=== PATIENT | male | born 1990 | race Caucasian/White ===

== ENCOUNTER 2020-01-02 08:50 | Outpatient (CLI) | payer BC, SELFPAY ==
[2020-01-02 09:28] LABS: D Dimer 0.33 ug/mIFEU (0-0.59)
== END 2020-01-02 08:51 | disposition home or self-care (01) ==
LOC: LAB 08:56
PROVIDERS: PCP Physician Assistant; Visit Provider Family Medicine
DX: R05 Cough (principal); R07.9 Chest pain, unspecified; R09.89 Other specified symptoms and signs involving the circulatory and respiratory systems
CPT/HCPCS: 85378

== ENCOUNTER 2021-08-19 21:27 | Emergency (ER) | payer OTHER, SELFPAY ==
--- NOTE | 2021-08-19 21:45 | CTR_ITS ---
PROCEDURE INFORMATION: Exam: CT Abdomen And Pelvis Without Contrast Exam date and time: 08/19/2021 10:00 PM Age: 30 years old Clinical indication: Abdominal pain; Generalized; Additional info: Abd pain with unrelenting vomiting today TECHNIQUE: Imaging protocol: Computed tomography of the abdomen and pelvis without contrast. Radiation optimization: All CT scans at this facility use at least one of these dose optimization techniques: automated exposure control; mA and/or kV adjustment per patient size (includes targeted exams where dose is matched to clinical indication); or iterative reconstruction. COMPARISON: CR XR chest 2V* [id number] 01/02/2020 8:28 AM RADIATION DOSE METRICS: Total DLP (mGy-cm): 1532.1 FINDINGS: Liver: Normal. No mass. Gallbladder and bile ducts: Normal. No calcified stones. No ductal dilation. Pancreas: Normal. No ductal dilation. Spleen: Normal. No splenomegaly. Adrenal glands: Normal. No mass. Kidneys and ureters: Normal. No renal stone or hydronephrosis. Stomach and bowel: Unremarkable. No obstruction. No mucosal thickening. Appendix: The appendix is normal. Intraperitoneal space: Unremarkable. No free air. No significant fluid collection. Vasculature: Unremarkable. No abdominal aortic aneurysm. Lymph nodes: Unremarkable. No enlarged lymph nodes. Urinary bladder: Unremarkable as visualized. Reproductive: Unremarkable as visualized. Bones/joints: Unremarkable. No acute fracture. Soft tissues: Mild left gynecomastia is appreciated. CT/CT abdomen pelvis con [id number] IMPRESSION: No acute abnormality is seen in the abdomen or pelvis. Mild left gynecomastia is noted.
--- NOTE | 2021-08-19 21:47 | W.ED.ABDPA2 ---
HPI - Abdominal Pain General: Chief Complaint: Nausea/Vomiting/Diarrhea Stated Complaint: N\V ABD Pain Time Seen by Provider: 08/19/21 21:33 Source: patient Mode of arrival: ambulatory Limitations: no limitations History of Present Illness: 30-year-old male who states that over the last 2 to 3 days has been having nausea vomiting along with abdominal pain. States pain is diffuse in nature and cramping he rates it a 6 out of 10 currently. He states that it waxed and waned over the last few days but got much worse today. Denies any worsening improving factors denies any fever denies any chest pain. Associated Symptoms: Reports nausea and vomiting; Denies chills, dysuria and fever(s) Review of Systems Const: Denies: fever(s), chills, body aches or change in appetite Eyes: Denies: blurry vision or eye discomfort ENMT: Denies: throat pain or dental pain Card: Denies: chest pain Resp: Denies: dyspnea GI: Reports: abdominal pain, nausea and vomiting : Denies: dysuria Musc: Denies: neck pain or back pain Skin/Breast: Denies: rash Neuro: Denies: headache(s) Psych: Denies: depression Vic/Lymph: Denies: easy bruising All/Imm: Denies: urticaria PFSH ED PFSH: Medical History (Updated 08/19/21 @ 23:17 by Kandis Ferguson MD) No pertinent past medical history Social History (Updated 08/19/21 @ 21:48 by Kandis Ferguson MD) Substance/Drug Use: never Physical Exam Const: COMMON NORMALS: no acute distress, patient oriented x3 and healthy appearing HENMT: COMMON NORMALS: normocephalic and atraumatic HEAD & SCALP: normocephalic and atraumatic Eye: COMMON NORMALS: Equal, round and reactive pupils present and EOMs intact bilaterally PUPIL: Yes Equal, round and reactive pupils present Neck/C-Spine: COMMON NORMALS: full ROM and supple Chest: COMMONS NORMALS: normal inspection of the chest and normal palpation of entire chest wall Resp: COMMON NORMALS: normal respiratory effort, No retractions, No use of accessory muscles and clear to auscultation bilaterally AUSCULTATION: clear to auscultation bilaterally Cardio: COMMON NORMALS: regular rate, regular rhythm and No murmurs present (Cardio) RATE: regular rate RHYTHM: regular rhythm GI: COMMON NORMALS: Normal to inspection, nondistended, normoactive bowel sounds present, Soft to palpation, non-tender and no masses PALPATION: Yes Soft to palpation Extremity: COMMON NORMALS: normal to inspection and full ROM Neuro: COMMON NORMALS: patient oriented x3, moves all extremities and no focal motor deficits Psych: COMMON NORMALS: mental status grossly normal, Normal thought process present and cooperative THOUGHT PROCESS: Normal thought process present Skin: COMMON NORMALS: no rashes or lesions noted and no wounds GENERAL SKIN EXAM: no rashes or lesions noted Course Vital Signs: Vital signs: Vital Signs Temperature 97.9 F 08/19/21 22:13 Pulse Rate 98 08/19/21 22:45 Respiratory Rate 24 H 08/19/21 22:45 Blood Pressure 138/100 08/19/21 22:45 Pulse Oximetry 98 08/19/21 22:45 MDM - Abdominal Pain Medical Decision Making Patient presents here with vomiting lower abdominal pain his CT of his abdomen along with blood work are normal he feels improved here will prescribe him nausea medicine for home along with Protonix he is to follow-up with PCP and return if worsening he understands agrees to plan. Lab Data : 08/19/21 22:20 08/19/21 22:20 Labs/Radiology: Radiology Impressions Abdomen/Pelvis CT 08/19/21 21:45 IMPRESSION: No acute abnormality is seen in the abdomen or pelvis. Mild left gynecomastia is noted. Laboratory Results WBC 13.6 10^3/uL (4.0-10.0) H 08/19/21 22:20 RBC 5.78 10^6/uL (4.1-5.3) H 08/19/21 22:20 Hgb 17.1 g/dL (11.7-16.6) H 08/19/21 22:20 Hct 49.4 % (42.0-52.0) 08/19/21 22:20 MCV 85.5 fl (80-94) 08/19/21 22:20 MCH 29.6 pg (28.0-34.0) 08/19/21 22:20 MCHC 34.6 g/dL (30.0-36.0) 08/19/21 22:20 RDW 13.1 % (12.1-15.1) 08/19/21 22:20 Plt Count 315 10^3/cmm (130-400) 08/19/21 22:20 MPV 9.1 fL (7.4-10.4) 08/19/21 22:20 Neut % (Auto) 71.0 % 08/19/21 22:20 Lymph % (Auto) 20.3 % 08/19/21 22:20 [place] % (Auto) 7.2 % 08/19/21 22:20 Eos % (Auto) 0.5 % 08/19/21 22:20 Baso % (Auto) 0.5 % 08/19/21 22:20 Neut # (Auto) 9.67 10^3/uL (1.8-7.7) H 08/19/21 22:20 Lymph # (Auto) 2.8 10^3/uL (0.8-4.8) 08/19/21 22:20 [place] # (Auto) 1.0 10^3/uL (0.2-0.9) H 08/19/21 22:20 Eos # (Auto) 0.1 10^3/uL (0.0-0.8) 08/19/21 22:20 Baso # (Auto) 0.1 10^3/uL (0.0-0.1) 08/19/21 22:20 Nucleated RBC % (auto) 0 % 08/19/21 22:20 Nucleated RBCs # 0.0 /100WBC 08/19/21 22:20 Sodium 138 mmol/L (136-145) 08/19/21 22:20 Potassium 3.6 mmol/L (3.5-5.1) 08/19/21 22:20 Chloride 101 mmol/L (98-107) 08/19/21 22:20 Carbon Dioxide 21 mmol/L (22-29) L 08/19/21 22:20 Anion Gap 19.6 (5-19) H 08/19/21 22:20 BUN 13 mg/dL (6-20) 08/19/21 22:20 Creatinine 0.9 mg/dL (0.7-1.2) 08/19/21 22:20 GFR Calculation 100.5 mL/min (90-130) 08/19/21 22:20 Glucose 119 mg/dL (65-115) H 08/19/21 22:20 Calculated Osmolality 287 mOsm/kg (285-295) 08/19/21 22:20 Calcium 9.3 mg/dL (8.5-10.5) 08/19/21 22:20 Total Bilirubin 0.5 mg/dL (0.15-1.2) 08/19/21 22:20 AST 35 U/L (0-40) 08/19/21 22:20 ALT 34 U/L (0-41) 08/19/21 22:20 Alkaline Phosphatase 71 IU/L (40-130) 08/19/21 22:20 Total Protein 7.8 g/dL (6.6-8.7) 08/19/21 22:20 Albumin 4.6 g/dL (3.5-5.2) 08/19/21 22:20 Globulin 3.2 g/dL (1.3-4.6) 08/19/21 22:20 Lipase 23 U/L (13-60) 08/19/21 22:20 Discharge Plan Discharge Patient Disposition: Home Clinical Impression: Abdominal pain, Vomiting Prescriptions: New hydrocodone-acetaminophen 5-325 mg tablet 1 tab PO Q6H PRN (Reason: pain) Qty: 14 0RF ondansetron 4 mg tablet,disintegrating 4 mg PO Q6H PRN (Reason: nausea and vomiting) Qty: 14 0RF Protonix 40 mg tablet,delayed release (DR/EC) 40 mg PO DAILY Qty: 60 0RF Discharge Orders: Discharge ED (Routine); Ordered 08/19/21 Ordered By: Kandis Ferguson Referrals: Diann Scruggs PA [Primary Care Provider] - 1-3 days Discharge Diet: Advance as tolerated Discharge Activity: Resume usual activity Patient Instructions: Abdominal Pain (ED), Opioid Safety Coding Level of Care Code ED Supervisor Network Control Operators for Chg Fwd Exam Comprehensive
[2021-08-19 22:13] VITALS: PULSE 71; RESP 22; TEMP 36.6; O2SAT 100; BMI 41.2
[2021-08-19 22:26] LABS: Basophils # 0.1 10^3/uL (0.0-0.1); Basophils % 0.5 %; Eosinophils # 0.1 10^3/uL (0.0-0.8); Eosinophils % 0.5 %; Hematocrit 49.4 % (42.0-52.0); Hemoglobin 17.1 g/dL (11.7-16.6); Lymphocytes # 2.8 10^3/uL (0.8-4.8); Lymphocytes % 20.3 %; Mean Corpuscular HGB Conc 34.6 g/dL (30.0-36.0); Mean Corpuscular Hemoglobin 29.6 pg (28.0-34.0); Mean Corpuscular Volume 85.5 fl (80-94); Mean Platelet Volume 9.1 fL (7.4-10.4); Monocytes % 7.2 %; Neutrophils # 9.67 10^3/uL (1.8-7.7); Nucleated Red Blood Cells % 0 %; Platelet Count 315 10^3/cmm (130-400); Red Blood Count 5.78 10^6/uL (4.1-5.3); Red Cell Distribution Width 13.1 % (12.1-15.1); White Blood Count 13.6 10^3/uL (4.0-10.0)
[2021-08-19 22:38] VITALS: RESP 24
[2021-08-19] MEDS: morphine 4 mg/mL SDV 1 mL IVP (22:38)
[2021-08-19] MEDS: sodium chloride 0.9% 1,000 ML 999 ML IV (22:39)
[2021-08-19] MEDS: ondansetron 2 mg/ML SDV 2 mL 4 MG IVP (22:39)
[2021-08-19 22:41] LABS: Alanine Aminotransferase 34 U/L (0-41); Albumin Level 4.6 g/dL (3.5-5.2); Alkaline Phosphatase 71 IU/L (40-130); Anion Gap 19.6 (5-19); Aspartate Amino Transferase 35 U/L (0-40); Blood Urea Nitrogen 13 mg/dL (6-20); Calcium 9.3 mg/dL (8.5-10.5); Carbon Dioxide 21 mmol/L (22-29); Chloride 101 mmol/L (98-107); Globulin 3.2 g/dL (1.3-4.6); Glomerular Filtration Rate 100.5 mL/min (90-130); Glucose 119 mg/dL (65-115); Lipase 23 U/L (13-60); Osmolality Calculated 287 mOsm/kg (285-295); Potassium 3.6 mmol/L (3.5-5.1); Sodium 138 mmol/L (136-145); Total Bilirubin 0.5 mg/dL (0.15-1.2); Total Protein 7.8 g/dL (6.6-8.7)
[2021-08-19 22:45] VITALS: BP 138/100; PULSE 98; RESP 24; O2SAT 98
[2021-08-19] MEDS: ondansetron 4 MG Tablet PO (23:35)
[2021-08-20 00:04] VITALS: BP 159/92; PULSE 88; RESP 18; O2SAT 98
== END 2021-08-20 00:05 | disposition home or self-care (01) ==
PROVIDERS: Emergency Provider Emergency Medicine; PCP Physician Assistant
DX: R11.2 Nausea with vomiting, unspecified (principal); R10.9 Unspecified abdominal pain
CPT/HCPCS: 74176; 80053; 83690; 85025; 96361; 96374; 96375; 99284; J2270; J2405; J7030; Q0162

== ENCOUNTER 2021-11-01 12:03 | Emergency (ER) | payer OTHER, SELFPAY ==
[2021-11-01 12:06] VITALS: BP 163/95; PULSE 75; RESP 21; TEMP 36.6; O2SAT 98; BMI 40.6
--- NOTE | 2021-11-01 12:10 | ED_ITS ---
HPI - General Adult General: Chief complaint: Abdominal Pain Stated complaint: Stomach Pain Time Seen by Provider: 11/01/21 12:08 History of Present Illness: Patient is a 31-year-old male with a history of prior abdominal pain, marijuana use presenting to the emergency room with compl aints of diffuse abdominal pain, nausea vomiting diarrhea. Patient tells me that he began having symptoms around midnight yesterday after eating dinner. Patient tells me that his ate the same food that he ate and did not have any symptoms. Since then, patient has had to lower abdominal pain and then diffuse abdominal pain. Patient reports multiple episodes of loose stool without any blood or melena. Patient also reports multiple episodes of emesis earlier today. Patient reports significant nausea. Denies any fever/chills, chest pain, shortness breath, sore throat, diarrhea/melena/hematochezia. Patient tells me he has a history of alpha gal present does not think that he has been exposed to eating pork or beef product in the last two days. Onset:yesterday night Duration:ongoing Location:home Severity:moderate Associated symptoms: Reports vomiting; Deny chest pain, dyspnea, nausea, rash or palpitations Review of Systems Const: Denies: fever(s) or chills Eyes: Denies: change in vision ENMT: Denies: mouth pain Card: Denies: chest pain or palpitations Resp: Denies: dyspnea or non-productive cough GI: Reports: abdominal pain, vomiting and diarrhea; Denies: nausea : Denies: dysuria Musc: Denies: extremity pain Skin/Breast: Denies: rash or new lesions Neuro: Denies: weakness in extremities Psych: Reports: other (Normal mood) Vic/Lymph: Denies: easy bruising [facility] ED PFSH: Medical History (Updated 11/01/21 @ 12:31 by Yair Chiang MD) Abdominal pain Social History (Updated 11/01/21 @ 12:29 by Yair Chiang MD) Smoking and tobacco status: never smoked Alcohol intake: never Substance/Drug Use: current Substance/Drug use type: Marijuana Physical Exam Const: COMMON NORMALS: alert HENMT: COMMON NORMALS: atraumatic HEAD & SCALP: atraumatic MOUTH: moist mucous membranes abnormal Eye: COMMON NORMALS: EOMs intact bilaterally and conjunctivae normal CONJUNCTIVA: Yes conjunctivae normal Neck/C-Spine: COMMON NORMALS: full ROM and supple Resp: COMMON NORMALS: normal respiratory effort and clear to auscultation bilaterally AUSCULTATION: clear to auscultation bilaterally Cardio: COMMON NORMALS: regular rate RATE: regular rate GI: COMMON NORMALS: Soft to palpation and non-tender PALPATION: Yes Soft to palpation OTHER: No focal TTP. NO guarding rebound, guarding, rigidity. No CVA tenderness to percussion. Neg Gaines/Neg McBurney's point tenderness, no suprabupic tenderness to palpation. Extremity: COMMON NORMALS: full ROM Neuro: SENSORIUM/ORIENTATION: Yes alert MOTOR EXAM: No Abnormal motor strength present and Other motor observations present (no focal motor deficits) Psych: COMMON NORMALS: speech normal SPEECH: Yes normal speech MOOD & AFFECT: Yes euthymic mood Course Vital Signs: Vital signs: Vital Signs Temperature 97.8 F 11/01/21 12:06 Pulse Rate 82 11/01/21 13:36 Respiratory Rate 18 11/01/21 13:36 Blood Pressure 152/98 11/01/21 13:36 Pulse Oximetry 100 11/01/21 13:36 Oxygen Delivery Me thod 11/01/21 13:36 [facility] - General Adult Medical Decision Making Patient is a 31-year-old male with a history of prior abdominal pain, marijuana use presenting to the emergency room with complaints of diffuse abdominal pain with nausea/vomiting/diarrhea since 12pm. On exam, patient is no focal tenderness palpation. Patient's appear to be dry. Patient received Zofran and IVF. Lab work-up showed no white count. Lab within normal limit. She received GI cocktail reports feeling symptomatically improved. Patient has been able to tolerate p.o. at this time. No suspicion for other acute intra-abdominal pathology including SBO, biliary pathology, appendicitis, diverticulitis, or other emergent condition requiring surgery. Rx tylenol PRN abd pain, maalox/pepcid PRN dyspepsia, and zofran PRN nausea/vomiting Disposition: Discharge. Patient counseled regarding diagnostic impression, treatment plan. Patient given ED strict return precautions to return for continuation, worsening, or development of new symptoms. Instructed to f/u w/ PCP regarding symptoms today. Patient verbalized understanding. Lab Data : 11/01/21 13:00 11/01/21 13:00 Radiology Impressions Abdomen/Pelvis CT 11/01/21 15:06 IMPRESSION: No acute findings. Laboratory Results WBC 11.0 10^3/uL (4.0-10.0) H 11/01/21 13:00 RBC 5.57 10^6/uL (4.1-5.3) H 11/01/21 13:00 Hgb 16.5 g/dL (11.7-16.6) 11/01/21 13:00 Hct 46.8 % (42.0-52.0) 11/01/21 13:00 MCV 84.0 fl (80-94) 11/01/21 13:00 MCH 29.6 pg (28.0-34.0) 11/01/21 13:00 MCHC 35.3 g/dL (30.0-36.0) 11/01/21 13:00 RDW 12.7 % (12.1-15.1) 11/01/21 13:00 Plt Count 344 10^3/cmm (130-400) 11/01/21 13:00 MPV 9.9 fL (7.4-10.4) 11/01/21 13:00 Neut % (Auto) 79.4 % 11/01/21 13:00 Lymph % (Auto) 13.5 % 11/01/21 13:00 [place] % (Auto) 6.3 % 11/01/21 13:00 Eos % (Auto) 0.0 % 11/01/21 13:00 Baso % (Auto) 0.3 % 11/01/21 13:00 Neut # (Auto) 8.78 10^3/uL (1.8-7.7) H 11/01/21 13:00 Lymph # (Auto) 1.5 10^3/uL (0.8-4.8) 11/01/21 13:00 [place] # (Auto) 0.7 10^3/uL (0.2-0.9) 11/01/21 13:00 Eos # (Auto) 0.0 10^3/uL (0.0-0.8) 11/01/21 13:00 Baso # (Auto) 0.0 10^3/uL (0.0-0.1) 11/01/21 13:00 Nucleated RBC % (auto) 0 % 11/01/21 13:00 Nucleated RBCs # 0.0 /100WBC 11/01/21 13:00 Sodium 137 mmol/L (136-145) 11/01/21 13:00 Potassium 3.0 mmol/L (3.5-5.1) L 11/01/21 13:00 Chloride 100 mmol/L (98-107) 11/01/21 13:00 Carbon Dioxide 19 mmol/L (22-29) L 11/01/21 13:00 Anion Gap 21.0 (5-19) H 11/01/21 13:00 BUN 4 mg/dL (6-20) L 11/01/21 13:00 Creatinine 0.7 mg/dL (0.7-1.2) 11/01/21 13:00 GFR Calculation 133.3 mL/min (90-130) H 11/01/21 13:00 Glucose 131 mg/dL (65-115) H 11/01/21 13:00 Calculated Osmolality 283 mOsm/kg (285-295) L 11/01/21 13:00 Calcium 10.1 mg/dL (8.5-10.5) 11/01/21 13:00 Total Bilirubin 0.7 mg/dL (0.15-1.2) 11/01/21 13:00 AST 29 U/L (0-40) 11/01/21 13:00 ALT 41 U/L (0-41) 11/01/21 13:00 Alkaline Phosphatase 80 U/L (40-130) 11/01/21 13:00 Total Protein 8.0 g/dL (6.6-8.7) 11/01/21 13:00 Albumin 5.2 g/dL (3.5-5.2) 11/01/21 13:00 Globulin 2.8 g/dL (1.3-4.6) 11/01/21 13:00 Lipase 19 U/L (13-60) 11/01/21 13:00 Imaging Data Other Imaging: Radiologist's impression: [address] [place] [address] CT Scan Report Signed Patient: Delmar Amaya Unit #: [id number] : 1990 Age/Sex: 31 / M ADM Date: 11/01/21 Loc: ER Room/Bed: Attending Dr: Ordering Provider/Ordering MD: Yair Chiang MD Date of Service: 11/01/21 Procedure(s): CT abdomen pelvis w con* [id number] Accession Number(s): [id number] Report Number: [id number] PROCEDURE INFORMATION: Exam: CT Abdomen And Pelvis With Contrast Exam date and time: 11/01/2021 3:16 PM Age: 31 years old Clinical indication: Bloating and nausea and vomiting; Additional info: Abd pain TECHNIQUE: Imaging protocol: Computed tomography of the abdomen and pelvis with contrast. Radiation optimization: All CT scans at this facility use at least one of these dose optimization techniques: automated exposure control; mA and/or kV adjustment per patient size (includes targeted exams where dose is matched to clinical indication); or iterative reconstruction. Contrast material: OMNIPAQUE 350; Contrast volume: 80 ml; Contrast route: INTRAVENOUS (IV);? COMPARISON: CT abdomen pelvis wo con [id number] 08/19/2021 10:00 PM RADIATION DOSE METRICS: Total DLP (mGy-cm): 1250.18 FINDINGS: Liver: Normal. No mass. Gallbladder and bile ducts: Normal. No calcified stones. No ductal dilation. Pancreas: Normal. No ductal dilation. Spleen: Normal. No splenomegaly. Adrenal glands: Normal. No mass. Kidneys and ureters: Normal. No hydronephrosis. Stomach and bowel: Unremarkable. No obstruction. No mucosal thickening. Appendix: No evidence of appendicitis. Intraperitoneal space: Unremarkable. No free air. No significant fluid collection. Vasculature: Unremarkable. No abdominal aortic aneurysm. Lymph nodes: Unremarkable. No enlarged lymph nodes. Urinary bladder: Unremarkable as visualized. Reproductive: Unremarkable as visualized. Bones/joints: No acute fracture. Soft tissues: Unremarkable. CT/CT abdomen pelvis w con* [id number] IMPRESSION: No acute findings. ? Dictated By: Elmer Simms DO Signed By: Elmer Simms DO Signed Date/Time: 11/01/21 1608 DD/ 1516 Discharge Plan Discharge Patient Disposition: Home Clinical Impression: Abdominal pain, Nausea & vomiting, Diarrhea Condition: Stable Prescriptions: New acetaminophen 500 mg tablet 500 mg PO Q6H PRN (Reason: pain) 5 Days Qty: 20 0RF Maalox Advanced 1,000-60 mg tablet,chewable 1 tab PO TID PRN (Reason: abdominal pain) 7 Days Qty: 21 0RF Pepcid 20 mg tablet 20 mg PO BID PRN (Reason: abdominal pain) 10 Days Qty: 20 0RF ondansetron 4 mg tablet,disintegrating 4 mg PO TID PRN (Reason: nausea and vomiting) 4 Days Qty: 12 0RF No Action hydrocodone-acetaminophen 5-325 mg tablet 1 tab PO Q6H PRN (Reason: pain) Qty: 14 0RF ondansetron 4 mg tablet,disintegrating 4 mg PO Q6H PRN (Reason: nausea and vomiting) Qty: 14 0RF Protonix 40 mg tablet,delayed release (DR/EC) 40 mg PO DAILY Qty: 60 0RF Discharge Orders: Discharge ED (Routine); Ordered 11/01/21 Ordered By: Yair Chiang Referrals: Diann Scruggs PA [Primary Care Provider] - Discharge Diet: Advance as tolerated Discharge Activity: Increase activity as tolerated Patient Instructions: Acute Nausea and Vomiting (ED), Acute Diarrhea (ED), Abdominal Pain (ED) Activity Restrictions/Additional Instructions: Please come back if you have any worsening abdominal pain, fever or chills, nausea or vomiting, diarrhea, blood in the stool, inability hold down liquid or solids, or any new concerning complaints. Coding Level of Care Code ED Director Data Processing for [employer] Fwd Exam Comprehensive
[2021-11-01] MEDS: acetaminophen 500 mg Tablet PO (12:51)
[2021-11-01] MEDS: sodium chloride 0.9% 1,000 ML 999 ML IV ×2 (12:52→14:25)
[2021-11-01] MEDS: ondansetron 2 mg/ML SDV 2 mL 4 MG IVP ×2 (12:55→15:03)
[2021-11-01] MEDS: famotidine 20 mg/2 mL INJ IVP (12:58)
[2021-11-01 13:14] LABS: Basophils % 0.3 %; Hematocrit 46.8 % (42.0-52.0); Hemoglobin 16.5 g/dL (11.7-16.6); Lymphocytes # 1.5 10^3/uL (0.8-4.8); Lymphocytes % 13.5 %; Mean Corpuscular HGB Conc 35.3 g/dL (30.0-36.0); Mean Corpuscular Hemoglobin 29.6 pg (28.0-34.0); Mean Platelet Volume 9.9 fL (7.4-10.4); Monocytes # 0.7 10^3/uL (0.2-0.9); Monocytes % 6.3 %; Neutrophils # 8.78 10^3/uL (1.8-7.7); Neutrophils % 79.4 %; Nucleated Red Blood Cells % 0 %; Platelet Count 344 10^3/cmm (130-400); Red Blood Count 5.57 10^6/uL (4.1-5.3); Red Cell Distribution Width 12.7 % (12.1-15.1)
[2021-11-01 13:29] VITALS: RESP 20
[2021-11-01] MEDS: morphine 4 mg/mL SDV 1 mL 2 MG IVP (13:29)
[2021-11-01] MEDS: lidocaine 2% viscous 15 ML, aluminum-mag hydrox-simethicon 30 ML, sucralfate oral liq 1 GM PO (13:31)
[2021-11-01 13:34] LABS: Alanine Aminotransferase 41 U/L (0-41); Albumin Level 5.2 g/dL (3.5-5.2); Alkaline Phosphatase 80 U/L (40-130); Aspartate Amino Transferase 29 U/L (0-40); Blood Urea Nitrogen 4 mg/dL (6-20); Calcium 10.1 mg/dL (8.5-10.5); Carbon Dioxide 19 mmol/L (22-29); Chloride 100 mmol/L (98-107); Globulin 2.8 g/dL (1.3-4.6); Glomerular Filtration Rate 133.3 mL/min (90-130); Glucose 131 mg/dL (65-115); Lipase 19 U/L (13-60); Osmolality Calculated 283 mOsm/kg (285-295); Sodium 137 mmol/L (136-145); Total Bilirubin 0.7 mg/dL (0.15-1.2)
[2021-11-01 13:36] VITALS: BP 152/98; PULSE 82; RESP 18; O2SAT 100
--- NOTE | 2021-11-01 15:06 | CTR_ITS ---
PROCEDURE INFORMATION: Exam: CT Abdomen And Pelvis With Contrast Exam date and time: 11/01/2021 3:16 PM Age: 31 years old Clinical indication: Bloating and nausea and vomiting; Additional info: Abd pain TECHNIQUE: Imaging protocol: Computed tomography of the abdomen and pelvis with contrast. Radiation optimization: All CT scans at this facility use at least one of these dose optimization techniques: automated exposure control; mA and/or kV adjustment per patient size (includes targeted exams where dose is matched to clinical indication); or iterative reconstruction. Contrast material: OMNIPAQUE 350; Contrast volume: 80 ml; Contrast route: INTRAVENOUS (IV); COMPARISON: CT abdomen pelvis wo con [id number] 08/19/2021 10:00 PM RADIATION DOSE METRICS: Total DLP (mGy-cm): 1250.18 FINDINGS: Liver: Normal. No mass. Gallbladder and bile ducts: Normal. No calcified stones. No ductal dilation. Pancreas: Normal. No ductal dilation. Spleen: Normal. No splenomegaly. Adrenal glands: Normal. No mass. Kidneys and ureters: Normal. No hydronephrosis. Stomach and bowel: Unremarkable. No obstruction. No mucosal thickening. Appendix: No evidence of appendicitis. Intraperitoneal space: Unremarkable. No free air. No significant fluid collection. Vasculature: Unremarkable. No abdominal aortic aneurysm. Lymph nodes: Unremarkable. No enlarged lymph nodes. Urinary bladder: Unremarkable as visualized. Reproductive: Unremarkable as visualized. Bones/joints: No acute fracture. Soft tissues: Unremarkable. CT/CT abdomen pelvis w con* [id number] IMPRESSION: No acute findings.
[2021-11-01] MEDS: iohexol 350 mg/mL 100 mL Btl IV (15:19)
[2021-11-01 16:26] LABS: Add Urine Microscopic? YES; Bilirubin Urine Neg (Negative); Blood Urine Neg (Negative); Glucose Urine UA Norm (Normal); Ketones Urine Negative (Negative); Leukocyte Esterase Urine 1+ (Negative); Nitrate Urine Positive (Negative); Protein Urine Trace (Negative); Urine Appearance SL Hazy (CLEAR); Urine Color Yellow (Yellow); Urobilinogen Urine Norm (Negative); pH Urine 6 (5-7)
[2021-11-01 16:28] LABS: Add Urine Culture? Yes; Bacteria Urine 1+ /hpf; Mucus Urine 2+ /hpf; Squamous Epithelial Cell Urine RARE /hpf (0-5)
[2021-11-01 16:37] VITALS: BP 128/75
== END 2021-11-01 16:39 | disposition home or self-care (01) ==
PROVIDERS: Emergency Provider Emergency Medicine; PCP Physician Assistant
DX: R10.9 Unspecified abdominal pain (principal); R11.2 Nausea with vomiting, unspecified; R19.7 Diarrhea, unspecified
CPT/HCPCS: 74177; 80053; 81001; 83690; 85025; 87077; 87086; 87186; 96361; 96374; 96375; 96376; 99285; J2270; J2405; J3490; J7030; Q9967

== ENCOUNTER 2021-11-03 10:40 | Emergency (ER) | payer OTHER, SELFPAY ==
[2021-11-03 10:56] VITALS: BP 159/102; PULSE 88; RESP 98; TEMP 36.8; O2SAT 97; BMI 40.6
[2021-11-03] MEDS: sodium chloride 0.9% 1,000 ML 999 ML IV (11:14)
[2021-11-03] MEDS: ondansetron 2 mg/ML SDV 2 mL 4 MG IVP (11:17)
[2021-11-03 11:22] LABS: Basophils # 0.1 10^3/uL (0.0-0.1); Basophils % 0.8 %; Eosinophils # 0.2 10^3/uL (0.0-0.8); Eosinophils % 1.2 %; Hematocrit 48.8 % (42.0-52.0); Hemoglobin 16.7 g/dL (11.7-16.6); Lymphocytes % 20.4 %; Mean Corpuscular HGB Conc 34.2 g/dL (30.0-36.0); Mean Corpuscular Volume 87.6 fl (80-94); Monocytes # 1.2 10^3/uL (0.2-0.9); Monocytes % 8.5 %; Neutrophils # 9.97 10^3/uL (1.8-7.7); Neutrophils % 68.6 %; Nucleated Red Blood Cells % 0 %; Platelet Count 272 10^3/cmm (130-400); Red Blood Count 5.57 10^6/uL (4.1-5.3); Red Cell Distribution Width 13.1 % (12.1-15.1); White Blood Count 14.5 10^3/uL (4.0-10.0)
[2021-11-03] MEDS: lidocaine 2% viscous 15 ML, aluminum-mag hydrox-simethicon 30 ML, sucralfate oral liq 1 GM PO (11:26)
[2021-11-03 11:42] VITALS: BP 167/102; PULSE 73; RESP 21; O2SAT 95
[2021-11-03] MEDS: haloperidol inj 5 mg/mL INJ 1 mL IVP (12:02)
[2021-11-03 12:21] VITALS: BP 143/109; PULSE 67; RESP 16; O2SAT 100
[2021-11-03 12:22] LABS: Add Urine Microscopic? NO; Charge for UA Resulting for Rev
[2021-11-03 12:24] LABS: Alanine Aminotransferase 41 U/L (0-41); Albumin Level 4.4 g/dL (3.5-5.2); Alkaline Phosphatase 66 U/L (40-130); Anion Gap 20.7 (5-19); Aspartate Amino Transferase 30 U/L (0-40); Blood Urea Nitrogen 7 mg/dL (6-20); Calcium 9.3 mg/dL (8.5-10.5); Carbon Dioxide 18 mmol/L (22-29); Chloride 102 mmol/L (98-107); Globulin 2.7 g/dL (1.3-4.6); Glomerular Filtration Rate 114.3 mL/min (90-130); Glucose 113 mg/dL (65-115); Lipase 28 U/L (13-60); Osmolality Calculated 285 mOsm/kg (285-295); Sodium 138 mmol/L (136-145); Total Bilirubin 0.7 mg/dL (0.15-1.2); Total Protein 7.1 g/dL (6.6-8.7)
[2021-11-03 12:25] LABS: Potassium 2.7 mmol/L (3.5-5.1)
[2021-11-03 12:31] LABS: Urine Appearance Clear (CLEAR); Urine Color Yellow (Yellow); pH Urine 6 (5-7)
[2021-11-03 12:32] LABS: Bilirubin Urine Neg (Negative); Blood Urine Neg (Negative); Glucose Urine UA Norm (Normal); Ketones Urine 3+ (Negative); Leukocyte Esterase Urine Negative (Negative); Nitrate Urine Negative (Negative); Protein Urine Neg (Negative); Urobilinogen Urine Norm (Negative)
[2021-11-03 12:35] LABS: Amphetamines Screen Urine Negative (Negative); Barbiturates Screen Urine Negative (Negative); Benzodiazepines Screen Urine Negative (Negative); Cocaine Screen Urine Negative (Negative); Opiate Screen Urine Negative (Negative); PCP Screen Urine Negative (Negative); THC Screen Urine Positive (Negative)
--- NOTE | 2021-11-03 12:42 | PC.PHAR ---
pt states he takes care of his own medications-pt states on 11/01/21 that dced dicyclomine 20mg tid prn filled 10/23/21 30d/s-pt states he is no longer taking buspar 10mg tid prn filled 09/19/21 10d/s-pt states no longer taking pantoprazole 40mg daily filled 09/14/21 30d/s
[2021-11-03] MEDS: potassium chloride premix 100 ML 50 MEQ IV (12:45)
--- NOTE | 2021-11-03 13:21 | CT_ITS ---
WS: [id number] CT ABDOMEN PELVIS TECHNIQUE: Contrast-enhanced CT of the abdomen and pelvis with coronal and sagittal reformatted image s. CLINICAL INFORMATION: pn COMPARISON: CT 11/01/2021 and 08/19/2021 DLP: 1223.[address] scans at [facility] use at least one of these dose optimization techniques: automated e xposure control; mA and/or kV adjustment per patient size (includes targeted exams where dose is matc hed to clinical indication); or iterative reconstruction. FINDINGS: Diffuse fatty infiltration liver. Normal spleen. Normal GE junction. Lung bases are well aerated. Nor mal pancreatic parenchymal enhancement. Adrenal glands are normal. No hydronephrosis in either kidney . Normal GE junction. Normal portal vein and splenic vein. Normal caliber abdominal aorta. Normal sigmoid colon. Normal appendix in the RIGHT lower quadrant. A few slightly prominent lymph nod es in the RIGHT lower quadrant can be seen with mesenteric adenitis. Normal appendix. No evidence of acute appendicitis. No other suspicious findings. CT/CT abdomen pelvis w con* [id number] IMPRESSION: 1. Diffuse fatty infiltration of the liver. 2. Normal appendix in RIGHT lower quadrant. No evidence of acute appendicitis. 3. A few prominent lymph nodes in the RIGHT lower quadrant can be seen with me senteric adenitis. 4. No other suspicious or acute findings.
[2021-11-03] MEDS: iohexol 350 mg/mL 100 mL Btl IV (13:39)
[2021-11-03 14:00] VITALS: BP 150/78; PULSE 65; RESP 12; O2SAT 92
[2021-11-03 14:30] VITALS: BP 174/107; PULSE 75; RESP 12; O2SAT 92
--- NOTE | 2021-11-03 14:57 | W.ED.NAVMDI ---
HPI - Nausea/Vomiting/Diarrhea General: Chief complaint: Nausea/Vomiting/Diarrhea Stated complaint: N/V/ABD Pain Time Seen by Provider: 11/03/21 11:06 History of Present Illness: 31-year-old male patient presents to the emergency department very anxious. Patient is complaining of diffuse abdominal pain with nausea and vomiting. Patient states he was seen here a few days ago with the same thing and had a negative work-up. Patient states he does have a follow-up with a natural resource technician. Patient denies any fever. Patient denies any back pain. Patient denies any chest pain or shortness of breath. Patient denies any fever. Patient denies any urinary symptoms. Associated nausea: Yes Associated symtoms: Reports nausea; Denies anxiety, change in vision, chest pain, diaphoresis, dizziness, dysuria, fatigue, headache(s), malaise, palpitations, syncope or tinnitus Review of Systems Const: Denies: fever(s), chills, body aches, change in appetite, change in weight, fatigue, malaise or diaphoresis Eyes: Denies: change in vision, blurry vision, blind spots, photophobia, eye discomfort, eye discharge, eye redness, floaters or seeing flashes ENMT: Denies: throat pain, uvular edema, enlarged tonsils, odynophagia, hoarseness, mouth pain, swelling of lips/tongue, oral sores, bleeding gums, dental pain, dry mouth, ear or mastoid pain, ear discharge, change in hearing, tinnitus, disequilibrium, nasal discharge, nasal congestion, post nasal drip or sinus pain Card: Denies: chest pain, palpitations, irregular heart rhythm, edema, swelling of feet/ankles, lightheadedness, syncope, pre-syncope, dyspnea on exertion, orthopnea, leg pain with exertion or acrocyanosis Resp: Denies: dyspnea, productive cough, non-productive cough, wheezing, stridor, pain on inspiration, change in phlegm color, hemoptysis or chest congestion GI: Reports: abdominal pain, nausea and vomiting; Denies: hematemesis, dysphagia, diarrhea, constipation, GI cramping, change in bowel habits or rectal pain : Denies: flank pain, dysuria, urinary frequency, urinary urgency, urinary hesitancy or hematuria Musc: Denies: neck pain, back pain, extremity pain, extremity swelling, joint pain, joint swelling, joint redness, joint warmth or deformity Skin/Breast: Denies: rash, pruritus, erythema, sores, new lesions, changes in skin color or dry skin Neuro: Denies: headache(s), numbness in extremities, weakness in extremities, sensory changes, lack of coordination, difficulty walking, frequent falls, dizziness, vertigo, confusion, behavioral changes, Slurred speech present, difficulty communicating thoughts or seizure-like activity Psych: Denies: anxiety, depression, suicidal ideation or homicidal ideation Endo: Denies: polyuria, polydipsia, tired all the time, cold intolerance, excessive sweating, flushing, hot flashes or heat intolerance Vic/Lymph: Denies: easy bruising, easy bleeding, petechiae, purpura, enlarged lymph nodes or tender lymph nodes All/Imm: Denies: urticaria, throat swelling, tongue swelling, facial swelling, acute wheezing or itchy eyes PFSH ED PFSH: Medical History Abdominal pain Social History Smoking and tobacco status: never smoked Alcohol intake: never Physical Exam Const: COMMON NORMALS: no acute distress, patient oriented x3, healthy appearing, alert and well nourished GENERAL APPEARANCE: cooperative, comfortable, well kempt and well developed; not ill appearing ORIENTATION/CONSCIOUSNESS: Yes awake, Yes oriented to person, Yes oriented to place and Yes oriented to time HENMT: COMMON NORMALS: normocephalic, atraumatic, hearing grossly normal bilaterally, external ears normal, EAC's normal, TM's normal bilaterally, Normal external nose present, Normal nasal mucous membranes and turbinates present and moist oral mucous membranes HEAD & SCALP: normal to inspection, normocephalic and atraumatic FACE & SINUS: normal facial exam, sinuses nontender and face symmetric NOSE: Normal external nose present, Normal nares present, Normal nasal mucous membranes and turbinates present, No nasal discharge present and Abnormal external nose present EXTERNAL EAR: Yes external ears normal and Yes mastoids normal EXTERNAL AUDITORY CANAL: EAC's normal TYMPANIC MEMBRANE: TM's normal bilaterally MOUTH: Normal oral and palatal mucosa present, lip normal, tongue normal and Normal salivary glands and ducts present THROAT: no uvular edema Eye: COMMON NORMALS: EOMs intact bilaterally and no scleral icterus Neck/C-Spine: COMMON NORMALS: full ROM, no lymphadenopathy, supple, no meningeal signs, no JVD and Thyroid normal GENERAL: Yes normal visual inspection and Yes trachea midline THYROID: Thyroid normal CERVICAL SPINE: Yes cervical ROM normal Lymph: LYMPHATIC: no lymphadenopathy noted and no lymphedema noted Chest: COMMONS NORMALS: normal inspection of the chest and normal palpation of entire chest wall Resp: COMMON NORMALS: normal respiratory effort, No retractions, No use of accessory muscles and clear to auscultation bilaterally EFFORT & INSPECTION: Yes able to speak in complete sentences and Yes symmetric chest movement AUSCULTATION: clear to auscultation bilaterally Cardio: COMMON NORMALS: no JVD, regular rate and regular rhythm RATE: regular rate RHYTHM: regular rhythm GI: COMMON NORMALS: Normal to inspection, nondistended, normoactive bowel sounds present, Soft to palpation, non-tender, No hepatosplenomegaly present, no masses and no bruits INSPECTION: Yes normal to inspection AUSCULTATION: Yes normoactive bowel sounds PALPATION: Yes Soft to palpation and Yes No hepatosplenomegaly present PERCUSSION: normal to percussion RECTAL EXAM: Yes deferred : COMMON NORMALS: Yes no CVA tenderness BLADDER/KIDNEY EXAM: Yes no CVA tenderness Back/Pelvis: COMMON NORMALS: no CVA tenderness, thoracic and lumbar spine normal to inspection, no thoracic nor lumbar tenderness, thoraco-lumbar ROM normal and straight leg raise negative bilaterally THORACIC SPINE/UPPER BACK: Yes normal to inspection LUMBAR SPINE/LOWER BACK: Yes normal to inspection Extremity: COMMON NORMALS: normal to inspection, full ROM and capillary refill normal GENERAL: Yes normal exam except as noted Neuro: COMMON NORMALS: patient oriented x3, CN's II-XII intact bilaterally, moves all extremities, no focal motor deficits, no sensory deficits noted, deep tendon reflexes 2+ bilaterally and gait normal SENSORIUM/ORIENTATION: Yes alert, Yes oriented to person, Yes oriented to place and Yes oriented to time MENINGEAL SIGNS: Yes no meningeal signs CRANIAL NERVES: Yes CN normal except as noted SPEECH: speech normal GAIT: Yes Normal gait present SENSORY EXAM: Yes extremities MOTOR EXAM: 5/5 motor strength present throughout Psych: COMMON NORMALS: mental status grossly normal, Normal thought process present, cooperative, normal affect, speech normal, activity/motor behavior normal, denies hallucinations, denies homicidal ideation and denies suicidal ideation APPEARANCE: Yes grossly normal and Yes well kempt ATTITUDE: Yes calm ACTIVITY/MOTOR BEHAVIOR: Yes appropriate eye contact SPEECH: Yes normal speech THOUGHT PROCESS: Normal thought process present THOUGHT CONTENT: Yes Normal thought content present ATTENTION/CONCENTRATION: Yes attention grossly intact MEMORY/COGNITION: Yes memory grossly intact INSIGHT: Good insight present (Psych) JUDGEMENT: Good judgement present (Psych) Skin: COMMON NORMALS: no rashes or lesions noted, no wounds, turgor normal, no jaundice, no petechiae and no mottling GENERAL SKIN EXAM: no rashes or lesions noted and turgor normal Course Vital Signs: Vital signs: Vital Signs Temperature 98.3 F 11/03/21 10:56 Pulse Rate 75 11/03/21 14:30 Respiratory Rate 12 11/03/21 14:30 Blood Pressure 174/107 11/03/21 14:30 Pulse Oximetry 92 11/03/21 14:30 Oxygen Delivery Me thod 11/03/21 14:30 MDM - Nausea/Vomiting/Diarrhea Medical Decision Making Patient is well-appearing nontoxic and in no acute distress. 31-year-old male patient presents to the emergency department very anxious. Patient is complaining of diffuse abdominal pain with nausea and vomiting. Patient states he was seen here a few days ago with the same thing and had a negative work-up. Patient states he does have a follow-up with a natural resource technician. Patient denies any fever. Patient denies any back pain. Patient denies any chest pain or shortness of breath. Patient denies any fever. Patient denies any urinary symptoms. Patient was noted to be hypokalemic. Patient was given 20 mill equivalents of potassium IV. Patient has been advised to follow-up with primary care physician for recheck of white blood cell count as well as potassium. CT finding does not show anything acute other than a few prominent lymph nodes in the right lower quadrant consistent with mesenteric adenitis there are no other suspicious or acute findings noted. I will send patient home with a short course of pain meds as well as Phenergan suppositories. Patient does have follow-up with GI specialist at this time. Lab Data : 11/03/21 11:12 11/03/21 11:43 Radiology Impressions Abdomen/Pelvis CT 11/03/21 13:21 IMPRESSION: 1. Diffuse fatty infiltration of the liver. 2. Normal appendix in RIGHT lower quadrant. No evidence of acute appendicitis. 3. A few prominent lymph nodes in the RIGHT lower quadrant can be seen with mesenteric adenitis. 4. No other suspicious or acute findings. Laboratory Results WBC 14.5 10^3/uL (4.0-10.0) H 11/03/21 11:12 RBC 5.57 10^6/uL (4.1-5.3) H 11/03/21 11:12 Hgb 16.7 g/dL (11.7-16.6) H 11/03/21 11:12 Hct 48.8 % (42.0-52.0) 11/03/21 11:12 MCV 87.6 fl (80-94) 11/03/21 11:12 MCH 30.0 pg (28.0-34.0) 11/03/21 11:12 MCHC 34.2 g/dL (30.0-36.0) 11/03/21 11:12 RDW 13.1 % (12.1-15.1) 11/03/21 11:12 Plt Count 272 10^3/cmm (130-400) 11/03/21 11:12 MPV 11.0 fL (7.4-10.4) H 11/03/21 11:12 Neut % (Auto) 68.6 % 11/03/21 11:12 Lymph % (Auto) 20.4 % 11/03/21 11:12 [place] % (Auto) 8.5 % 11/03/21 11:12 Eos % (Auto) 1.2 % 11/03/21 11:12 Baso % (Auto) 0.8 % 11/03/21 11:12 Neut # (Auto) 9.97 10^3/uL (1.8-7.7) H 11/03/21 11:12 Lymph # (Auto) 3.0 10^3/uL (0.8-4.8) 11/03/21 11:12 [place] # (Auto) 1.2 10^3/uL (0.2-0.9) H 11/03/21 11:12 Eos # (Auto) 0.2 10^3/uL (0.0-0.8) 11/03/21 11:12 Baso # (Auto) 0.1 10^3/uL (0.0-0.1) 11/03/21 11:12 Nucleated RBC % (auto) 0 % 11/03/21 11:12 Nucleated RBCs # 0.0 /100WBC 11/03/21 11:12 Sodium 138 mmol/L (136-145) 11/03/21 11:43 Potassium 2.7 mmol/L (3.5-5.1) L* 11/03/21 11:43 Chloride 102 mmol/L (98-107) 11/03/21 11:43 Carbon Dioxide 18 mmol/L (22-29) L 11/03/21 11:43 Anion Gap 20.7 (5-19) H 11/03/21 11:43 BUN 7 mg/dL (6-20) 11/03/21 11:43 Creatinine 0.8 mg/dL (0.7-1.2) 11/03/21 11:43 GFR Calculation 114.3 mL/min (90-130) 11/03/21 11:43 Glucose 113 mg/dL (65-115) 11/03/21 11:43 Calculated Osmolality 285 mOsm/kg (285-295) 11/03/21 11:43 Calcium 9.3 mg/dL (8.5-10.5) 11/03/21 11:43 Total Bilirubin 0.7 mg/dL (0.15-1.2) 11/03/21 11:43 AST 30 U/L (0-40) 11/03/21 11:43 ALT 41 U/L (0-41) 11/03/21 11:43 Alkaline Phosphatase 66 U/L (40-130) 11/03/21 11:43 Total Protein 7.1 g/dL (6.6-8.7) 11/03/21 11:43 Albumin 4.4 g/dL (3.5-5.2) 11/03/21 11:43 Globulin 2.7 g/dL (1.3-4.6) 11/03/21 11:43 Lipase 28 U/L (13-60) 11/03/21 11:43 Urine Color Yellow (Yellow) 11/03/21 11:54 Urine Appearance Clear (CLEAR) 11/03/21 11:54 Urine pH 6 (5-7) 11/03/21 11:54 Ur Specific [place] 1.020 (1.005-1.030) 11/03/21 11:54 Urine Protein Neg (Negative) 11/03/21 11:54 Urine Glucose (UA) Norm (Normal) 11/03/21 11:54 Urine Ketones 3+ (Negative) H 11/03/21 11:54 Urine Blood Neg (Negative) 11/03/21 11:54 Urine Nitrate Negative (Negative) 11/03/21 11:54 Urine Bilirubin Neg (Negative) 11/03/21 11:54 Urine Urobilinogen Norm mg/dL (Negative) 11/03/21 11:54 Ur Leukocyte Esterase Negative (Negative) 11/03/21 11:54 Urine Opiates Screen Negative ng/mL (Negative) 11/03/21 11:54 Ur Barbiturates Screen Negative ng/mL (Negative) 11/03/21 11:54 Ur Phencyclidine Scrn Negative ng/mL (Negative) 11/03/21 11:54 Ur Amphetamines Screen Negative ng/mL (Negative) 11/03/21 11:54 U Benzodiazepines Scrn Negative ng/mL (Negative) 11/03/21 11:54 Urine Cocaine Screen Negative ng/mL (Negative) 11/03/21 11:54 U Marijuana (THC) Screen Positive ng/mL (Negative) H 11/03/21 11:54 Discharge Plan Discharge Patient Disposition: Home Clinical Impression: Mesenteric adenitis Condition: Stable Prescriptions: New hydrocodone-acetaminophen 5-325 mg tablet 1 tab PO Q8H PRN (Reason: pain) Qty: 10 0RF promethazine 12.5 mg suppository 12.5 mg MT TID PRN (Reason: nausea and vomiting) Qty: 12 0RF Rx Instructions: do not give 3rd daily dose after evening meal or within 4hr before bed No Action omeprazole 40 mg capsule,delayed release(DR/EC) 40 mg PO DAILY hydrocodone-acetaminophen 5-325 mg tablet 1 tab PO Q6H PRN (Reason: pain) Qty: 14 0RF acetaminophen 500 mg tablet 500 mg PO Q6H PRN (Reason: pain) 5 Days Qty: 20 0RF Maalox Advanced 1,000-60 mg tablet,chewable 1 tab PO TID PRN (Reason: abdominal pain) 7 Days Qty: 21 0RF famotidine [Pepcid] 20 mg tablet 20 mg PO BID PRN (Reason: abdominal pain) 10 Days Qty: 20 0RF ondansetron 4 mg tablet,disintegrating 4 mg PO TID PRN (Reason: nausea and vomiting) 4 Days Qty: 12 0RF Discharge Orders: Discharge ED (Routine); Ordered 11/03/21 Ordered By: Astrid Milan Referrals: Diann Scruggs PA [Primary Care Provider] - Discharge Diet: Advance as tolerated Discharge Activity: Increase activity as tolerated Patient Instructions: Opioid Safety, Pain Management Activity Restrictions/Additional Instructions: Please take your medications as prescribed. Please follow-up with gastro enterologist as planned. Please follow-up with primary care physician for recheck. Please return to the emergency department with any worsening of condition or symptoms. Coding Level of Care Code ED [employer] for Yasmeen Davila
== END 2021-11-03 15:09 | disposition home or self-care (01) ==
PROVIDERS: Emergency Medicine; Emergency Provider Registered Nurse; PCP Physician Assistant
DX: I88.0 Nonspecific mesenteric lymphadenitis (principal)
CPT/HCPCS: 36415; 74177; 80053; 80306; 81003; 83690; 85025; 96365; 96366; 96375; 99285; J1630; J2405; J3480; J7030; Q9967

== ENCOUNTER 2022-08-19 16:51 | Outpatient (CLI) | payer OTHER, SELFPAY | END 2022-08-19 16:52 | disposition home or self-care (01) | PROVIDERS: PCP Physician Assistant; Visit Provider Internal Medicine Gastroenterology | DX: R19.4 Change in bowel habit (principal) | CPT/HCPCS: 83993 ==